=== PATIENT | female | born 1980 | race Caucasian/White ===

== ENCOUNTER 2017-11-28 13:51 | Emergency (ER) | payer OTHER ==
[~2017-11-28] VITALS: Ht 157.5 cm; Wt 94.0 kg
[2017-11-28 13:52] VITALS: BP 130/72; PULSE 78; RESP 16; TEMP 98.3; O2SAT 100
[2017-11-28 14:26] LABS: BASOPHIL # 0.1 TH/MM3 (0-0.2); EOSINOPHIL # 0.1 TH/MM3 (0-0.4); HEMATOCRIT 30.8 % (35.0-46.0); HEMOGLOBIN 9.7 GM/DL (11.6-15.3); LYMPH % 26.3 % (9.0-44.0); LYMPHOCYTE # 2.5 TH/MM3 (1.0-4.8); MEAN CELL VOLUME 65.8 FL (80.0-100.0); MEAN CORPUSCULAR HEMOGLOBIN 20.6 PG (27.0-34.0); MEAN CORPUSCULAR HGB CONC 31.3 % (32.0-36.0); MEAN PLATELET VOLUME 8.8 FL (7.0-11.0); MONO % 7.2 % (0.0-8.0); MONOCYTE # 0.7 TH/MM3 (0-0.9); NEUT % 64.5 % (16.0-70.0); PLATELET COUNT 340 TH/MM3 (150-450); RED BLOOD COUNT 4.69 MIL/MM3 (4.00-5.30); RED CELL DISTRIBUTION WIDTH 17.8 % (11.6-17.2); WHITE BLOOD COUNT 9.3 TH/MM3 (4.0-11.0)
[2017-11-28 14:43] LABS: BICARBONATE 25.2 MEQ/L (21.0-32.0); CALCIUM 8.6 MG/DL (8.5-10.1); CREATININE 0.67 MG/DL (0.50-1.00)
[2017-11-28] MEDS ORDERED: ALPR.25 PO (14:43)
[2017-11-28 14:47] LABS: BILIRUBIN, URINE NEG (NEG); BLOOD, URINE MOD (NEG); GLUCOSE,URINE NEG (NEG); KETONE, URINE TRACE mg/dL (NEG); MUCUS URINE FEW /lpf (OCC); NITRITE,URINE NEG (NEG); SQUAMOUS EPITHELIAL CELL URINE 24 /hpf (0-5); URINE LEUKOCYTE ESTERASE NEG (NEG)
[2017-11-28 14:48] LABS: URINE COLOR RED (YELLW/STRAW)
[2017-11-28 14:49] LABS: BACTERIA, URINE OCC /hpf
--- NOTE | 2017-11-28 16:39 | RADRPT ---
EXAM DATE/TIME: 11/28/2017 15:35 [facility] COMPARISON: No previous studies available for comparison. INDICATIONS : Bleeding and pelvic pain with . LAB(S): Beta-hC MEDICAL HISTORY : . . SURGICAL HISTORY : None. ENCOUNTER: Initial ACUITY: 1 day PAIN SCORE: 3/10 LOCATION: Bilateral pelvis MEASUREMENTS: UTERUS: 10.5 x 6.3 x 4.0 cm ENDOMETRIAL STRIPE: 17 mm RIGHT OVARY: 4.7 x 3.1 x 2.8 cm LEFT OVARY: 3.4 x 2.6 x 1.6 cm FREE FLUID: Yes Adjacent to bilateral ovaries. CROWN RUMP LENGTH: Non visualized. = WKS DAYS FHR: Non visualized. BPM FINDINGS: UTERUS: There is a gestational sac in the upper fundus without a pole or yolk sac. Gestational sac jessica ures 10 x 9 x 7 mm. Endometrial stripe is somewhat heterogeneous with complex heterogeneous collectio n measuring 3.5 x 1.4 x 4.4 cm which may reflect a subchorionic hemorrhage. RIGHT OVARY: Probable corpus luteal cyst measuring 3.0 x 1.7 x 2.3 cm. Otherwise, unremarkable. LEFT OVARY: Ovary contains no mass or significant cystic lesion. MISCELLANEOUS: Trace free fluid. CONCLUSION: 1. Single intrauterine gestational sac measuring 10 mm. This is in the upper limits of size without v isualization of yolk sac with transvaginal imaging. 2. Probable 3.5 x 1.4 x 4.4 cm subchorionic hemorrhage. 3. Trace free fluid in the pelvis. Paddy Mercado MD on November 28, 2017 at 16:20 Board Certified Radiologist. This report was verified electronically.
--- NOTE | 2017-11-28 17:03 | PD ---
HPI Chief Complaint: Related Problem Time Seen by Provider: 14:20 Travel History International Travel<30 days: No Contact w/Intl Traveler<30days: No Traveled to known affect area: No History of Present Illness HPI 37-year-old female that presents to the ED for evaluation of vaginal bleeding and . Per patient she is about 4 weeks . She did multiple tests at home and they were all positive. Since today she developed bleeding and she got concerned as it was severe with clotting. Cramping 2/10 pain. No other medical issues. No chest pain or SOB. No urinary or BM issues. First . No previous surgeries to the area. No allergies. No other medical problems. No OB visit yet. PFSH Past Medical History ?: LMP: 10/23/2017 Social History Alcohol Use: Yes (OCC) Tobacco Use: Yes Substance Use: No Allergies-Medications (Allergen,Severity, Reaction): Coded Allergies: No Known Allergies (Unverified , 11/28/17) Reported Meds & Prescriptions Reported Meds & Active Scripts Active Reported Xanax (Alprazolam) 0.25 Mg Tab 0.25 Mg PO Q4H PRN Review of Systems Except as stated in HPI: all other systems reviewed are Neg Physical Exam Narrative GENERAL: SKIN: Warm and dry. HEAD: Atraumatic. Normocephalic. EYES: Pupils equal and round. No scleral icterus. No injection or drainage. ENT: No nasal bleeding or discharge. Mucous membranes pink and moist. NECK: Trachea midline. No JVD. CARDIOVASCULAR: Regular rate and rhythm. RESPIRATORY: No accessory muscle use. Clear to auscultation. Breath sounds equal bilaterally. GASTROINTESTINAL: Abdomen soft, non-tender, nondistended. Hepatic and splenic margins not palpable. Pelvic: done with female nurse present. Vaginal bleeding noted but OS appears close. No masses or deformities. MUSCULOSKELETAL: Extremities without clubbing, cyanosis, or edema. No obvious deformities. NEUROLOGICAL: Awake and alert. No obvious cranial nerve deficits. Motor grossly within normal limits. Five out of 5 muscle strength in the arms and legs. Normal speech. PSYCHIATRIC: Appropriate mood and affect; insight and judgment normal. Data Data Last Documented VS Vital Signs Date Time Temp Pulse Resp B/P (MAP) Pulse Ox O2 Delivery O2 Flow Rate FiO2 11/28/17 13:52 98.3 78 16 130/72 (91) 100 Room Air Orders Orders Beta Hcg (Quant/Titer) (11/28/17 13:56) Complete Blood Count With Diff (11/28/17 13:56) Basic Metabolic Panel (Bmp) (11/28/17 13:56) Complete Rh (11/28/17 13:56) Urinalysis - C+S If Indicated (11/28/17 13:56) Ed Urine Pregnancytest Poc (11/28/17 13:56) Urine Culture (11/28/17 14:05) Wet Prep Profile (11/28/17 14:50) Us Pelvis (Ques Pr/Ect)W Trans (11/28/17 ) Ed Discharge Order (11/28/17 16:48) Labs Laboratory Tests Test 11/28/17 14:05 11/28/17 14:07 11/28/17 15:45 Urine Color RED Urine Turbidity CLOUDY Urine pH 6.0 Urine Specific Haynes 1.027 Urine Protein 300 mg/dL Urine Glucose (UA) NEG mg/dL Urine Ketones TRACE mg/dL Urine Occult Blood MOD Urine Nitrite NEG Urine Bilirubin NEG Urine Urobilinogen LESS THAN 2.0 MG/DL Urine Leukocyte Esterase NEG Urine RBC /hpf Urine WBC 20 /hpf Urine Squamous Epithelial Cells 24 /hpf Urine Bacteria OCC /hpf Urine Mucus FEW /lpf Microscopic Urinalysis Comment CULTURE INDICATED White Blood Count 9.3 TH/MM3 Red Blood Count 4.69 MIL/MM3 Hemoglobin 9.7 GM/DL Hematocrit 30.8 % Mean Corpuscular Volume 65.8 FL Mean Corpuscular Hemoglobin 20.6 PG Mean Corpuscular Hemoglobin Concent 31.3 % Red Cell Distribution Width 17.8 % Platelet Count 340 TH/MM3 Mean Platelet Volume 8.8 FL Neutrophils (%) (Auto) 64.5 % Lymphocytes (%) (Auto) 26.3 % Monocytes (%) (Auto) 7.2 % Eosinophils (%) (Auto) 1.0 % Basophils (%) (Auto) 1.0 % Neutrophils # (Auto) 6.0 TH/MM3 Lymphocytes # (Auto) 2.5 TH/MM3 Monocytes # (Auto) 0.7 TH/MM3 Eosinophils # (Auto) 0.1 TH/MM3 Basophils # (Auto) 0.1 TH/MM3 CBC Comment DIFF FINAL Differential Comment Blood Urea Nitrogen 11 MG/DL Creatinine 0.67 MG/DL Random Glucose 93 MG/DL Calcium Level 8.6 MG/DL Sodium Level 139 MEQ/L Potassium Level 3.8 MEQ/L Chloride Level 107 MEQ/L Carbon Dioxide Level 25.2 MEQ/L Anion Gap 7 MEQ/L Estimat Glomerular Filtration Rate 100 ML/MIN Human Chorionic Gonadotropin, Quant 8389 MIU/ML Clue Cells (Wet Prep) NS Vaginal Trichomonas (Wet Prep) NS Vaginal Yeast (Wet Prep) NS MDM Medical Decision Making Medical Screen Exam Complete: Yes Emergency Medical Condition: Yes Medical Record Reviewed: Yes Interpretation(s) Last Impressions Pelvis Ultrasound 11/28/17 0000 Signed Impressions: Service Date/Time: Tuesday, November 28, 2017 15:35 - CONCLUSION: 1. Single intrauterine gestational sac measuring 10 mm. This is in the upper limits of size without visualization of yolk sac with transvaginal imaging. 2. Probable 3.5 x 1.4 x 4.4 cm subchorionic hemorrhage. 3. Trace free fluid in the pelvis. Paddy Mercado MD CBC & BMP Diagram 11/28/17 14:07 Calcium Level 8.6 Differential Diagnosis miscarriage vs vs vaginal bleeding vs vs ectopic Narrative Course 37-year-old female that presents to the ED for evaluation of vaginal bleeding with . Patient was properly examined and was found to have signs and symptoms concerning for miscarriage. Labs and ultrasound were done. Ultrasound was positive for intrauterine with what appears to be hemorrhage. Case was discussed in my attending Dr. Pool who recommends follow -up in 2 days for recheck of beta and further evaluation. Patient agrees and understands this plan. Patient happy with the care. All questions were answered to the best of my ability. Patient was given results of labs as well as imaging. See ED worsening symptoms. Follow with PCP. Diagnosis Primary Impression: Vaginal bleeding affecting early Patient Instructions: General Instructions Med/Other Pt SpecificInfo: No Change to Meds Disposition: 01 DISCHARGE HOME Condition: Stable Vern Owens Nov 28, 2017 17:03
== END 2017-11-28 17:45 | disposition home or self-care (01) ==
LOC: NEPD 13:51
DX: O46.91 Antepartum hemorrhage, unspecified, first trimester (principal); O99.331 Smoking (tobacco) complicating pregnancy, first trimester; Z3A.01 Less than 8 weeks gestation of pregnancy; Z34.91 Encounter for supervision of normal pregnancy, unspecified, first trimester
CPT/HCPCS: 76700; 76817; 80048; 81001; 84702; 84703; 85025; 86901; 87086; 87210

== ENCOUNTER 2017-12-18 10:46 | Emergency (ER) | payer OTHER ==
[~2017-12-18] VITALS: Ht 157.5 cm; Wt 94.9 kg
[~2017-12-18 10:46] MED LIST: ALPR.25 PO
[2017-12-18 11:15] VITALS: BP 130/60; PULSE 72; RESP 18; TEMP 99.1; O2SAT 99
[2017-12-18] MEDS ORDERED: PREN29TA PO (11:51)
--- NOTE | 2017-12-18 12:17 | RADRPT ---
EXAM DATE/TIME: 12/18/2017 11:53 [facility] COMPARISON: No previous studies available for comparison. INDICATIONS : Left leg swelling. Palpable lump distal left lower leg. MEDICAL HISTORY : . . SURGICAL HISTORY : None. ENCOUNTER: Initial ACUITY: 1 day PAIN SCORE: 7/10 LOCATION: Bilateral leg. TECHNIQUE: Venous ultrasound of the left and right leg was performed from the inguinal ligament to the proximal calf. Real-time, color Doppler and spectral tracing, compression and augmentation techniques were us ed. FINDINGS: RIGHT LEG: There is normal compressibility of the deep venous system from the inguinal region to the proximal ca lf. No echogenic clot is seen in the lumen of the common femoral, femoral, popliteal, and posterior tibial veins. There is a normal response of the venous system to proximal and distal augmentation an d respiration. LEFT LEG: There is normal compressibility of the deep venous system from the inguinal region to the proximal ca lf. No echogenic clot is seen in the lumen of the common femoral, femoral, popliteal, and posterior tibial veins. There is a normal response of the venous system to proximal and distal augmentation an d respiration. There is thrombosis of a superficial vein in the anterior aspect of the distal left l eg in the area of lump. CONCLUSION: 1. There is superficial venous thrombosis of a vein at the area of palpable lump. 2. The deep veins of both lower extremities are patent. Je Wick MD on December 18, 2017 at 12:13 Board Certified Radiologist. This report was verified electronically.
--- NOTE | 2017-12-18 12:26 | PD ---
HPI Chief Complaint: Related Problem Time Seen by Provider: 11:22 Travel History International Travel<30 days: No Contact w/Intl Traveler<30days: No Traveled to known affect area: No History of Present Illness HPI 37-year-old female approximately 5 weeks by dates arrives describing swelling in the left lower leg. She is 1 para 0. She has a history of DVT. She describes a baseball size "knot" that is tender that she woke up with. She spoke with her center consultant in [place] who advised ER evaluation. The patient has undergone ultrasound done by her center consultant in [place] which revealed normal GI . She's had no abnormal discharge or bleeding. She describes some epigastric abdominal pain and nausea which she believes might be due to the flu. She's had no fever. No vaginal bleeding. No chest pain or shortness of breath. Patient reports occasional paresthesias involving the feet at the end of the day as well as bilateral ankle and foot swelling in the day. PFSH Past Medical History Medical History: Denies Significant Hx Tetanus Vaccination: > 5 Years Influenza Vaccination: No ?: LMP: 10/23/17 : 2 Para: 0 Miscarriage: 0 : 1 Past Surgical History Abdominal Surgery: Yes (gastric bypass, umbilical hernia and abd hernia repair) Cholecystectomy: Yes Oral Surgery: Yes ( wisdom teeth) Social History Alcohol Use: Yes (OCC) Tobacco Use: No (quit nov 2017 states smoke interm since the age of 15 cigs) Substance Use: No (hx of smoking "pot") Allergies-Medications (Allergen,Severity, Reaction): Coded Allergies: No Known Allergies (Unverified , 12/18/17) Reported Meds & Prescriptions Reported Meds & Active Scripts Active Reported Plus Iron 29-1 mg ( Vit-Iron Carbonyl) 29 Mg Iron-1 Mg Tab 1 Tab PO DAILY Review of Systems Except as stated in HPI: all other systems reviewed are Neg General / Constitutional: No: Fever Physical Exam Narrative GENERAL: 37-year-old female pleasant well-nourished well-developed no acute distress speaking in full sentences Vital Signs Date Time Temp Pulse Resp B/P (MAP) Pulse Ox O2 Delivery O2 Flow Rate FiO2 12/18/17 11:44 71 16 12/18/17 11:15 99.1 72 18 130/60 (83) 99 SKIN: Warm and dry. HEAD: Atraumatic. Normocephalic. EYES: Pupils equal and round. No scleral icterus. No injection or drainage. ENT: No nasal bleeding or discharge. Mucous membranes pink and moist. NECK: Trachea midline. No JVD. CARDIOVASCULAR: Regular rate and rhythm. RESPIRATORY: No accessory muscle use. Clear to auscultation. Breath sounds equal bilaterally. GASTROINTESTINAL: Abdomen soft, non-tender, nondistended. Hepatic and splenic margins not palpable. MUSCULOSKELETAL: There is no significant tenderness or asymmetric swelling erythema or induration of either lower extremity. The region which the patient states is swollen is overlying the ankle mortise towards the medial aspect. NEUROLOGICAL: Awake and alert. No obvious cranial nerve deficits. Motor grossly within normal limits. Five out of 5 muscle strength in the arms and legs. Normal speech. PSYCHIATRIC: Appropriate mood and affect; insight and judgment normal. Data Data Last Documented VS Vital Signs Date Time Temp Pulse Resp B/P (MAP) Pulse Ox O2 Delivery O2 Flow Rate FiO2 12/18/17 14:03 12/18/17 12:57 68 16 12/18/17 12:35 100 Room Air 12/18/17 11:15 99.1 Orders Orders Us Leg Venous Doppler Bilat (12/18/17 ) Influenzae A/B Antigen (12/18/17 11:26) Ed Discharge Order (12/18/17 13:24) [facility] Medical Decision Making Medical Screen Exam Complete: Yes Emergency Medical Condition: Yes Medical Record Reviewed: Yes Differential Diagnosis DVT, influenza, chronic pain Narrative Course Influenza is negative Extremity ultrasound reveals a superficial thrombophlebitis in the distal left leg This is not a DVT. This was discussed with the patient's [employer] from [place] Dr. Barnes. The patient is not a candidate for a traditional therapy. We'll do a repeat ultrasound in 1 week. Plans discussed with patient. Patient verbalized understanding and will follow with [employer] this week. Diagnosis Primary Impression: Leg swelling in Qualified Codes: O12.01 - Gestational edema, first trimester Additional Impression: Superficial thrombophlebitis Qualified Codes: I80.9 - Phlebitis and thrombophlebitis of unspecified site Med/Other Pt SpecificInfo: No Change to Meds Disposition: DISCHARGE HOME Condition: Stable Dwight Holcomb MD Dec 18, 2017 12:26
[2017-12-18 12:35] VITALS: BP 134/55; PULSE 63; RESP 16; O2SAT 100
== END 2017-12-18 14:19 | disposition home or self-care (01) ==
LOC: PHED 10:46
DX: O12.01 Gestational edema, first trimester (principal); I80.02 Phlebitis and thrombophlebitis of superficial vessels of left lower extremity; O99.841 Bariatric surgery status complicating pregnancy, first trimester; Z3A.01 Less than 8 weeks gestation of pregnancy
CPT/HCPCS: 87804; 93970; 99284